=== PATIENT | male | born 1990 | race African-American/Black ===

== ENCOUNTER 2022-07-09 13:23 | Inpatient (IN) | payer OTHER ==
[~2022-07-09] VITALS: Ht 190.5 cm; Wt 134.7 kg
[2022-07-09 14:47] LABS: COVID AG,FIA SOURCE NASAL SWAB
[2022-07-09] MEDS ORDERED: VANCOMYCIN HCL 1.5 GM in DEXTROSE 5%-WATER 250 ML IV ONE (15:00)
[2022-07-09 15:43] LABS: BASOPHILS % (AUTO) 0.5 % (0.0-2.0); EOSINOPHILS % (AUTO) 0.7 % (1.0-6.0); HEMATOCRIT 32.5 % (41-53); HEMOGLOBIN 10.1 g/dL (13.5-17.5); LYMPHOCYTES % (AUTO) 22.6 % (22.0-44.0); MEAN CORPUSCULAR HEMOGLOBIN 23.6 pg (26.0-34.0); MEAN CORPUSCULAR HGB CONC 31.2 G/dL (31.0-37.0); MEAN CORPUSCULAR VOLUME 76 fL (80-100); MONOCYTES # (AUTO) 1.2 K/uL (0.1-1.0); MONOCYTES % (AUTO) 13.1 % (2.0-9.0); NEUTROPHILS # (AUTO) 5.7 K/uL (1.8-7.7); NEUTROPHILS % (AUTO) 63.1 % (40.0-70.0); PLATELET COUNT (AUTO) 350 K/uL (150-450); RED BLOOD CELL COUNT(AUTO) 4.29 MIL/uL (4.50-5.90); RED CELL DISTRIBUTION WIDTH 15.8 % (11.5-14.5)
[2022-07-09 15:58] LABS: ANION GAP 8 mmol/L (8-16); CALCIUM, TOTAL 9.1 mg/dL (8.8-10.5); CARBON DIOXIDE 27 mmol/L (22-29); CHLORIDE 96 mmol/L (98-107); CREATININE 0.94 mg/dL (0.60-1.30); GLUCOSE,RANDOM 86 mg/dL (70-110); POTASSIUM 3.6 mmol/L (3.5-5.1); SODIUM SERUM 131 mmol/L (136-145); UREA NITROGEN, BLOOD 11 mg/dL (7-18)
[2022-07-09 15:59] LABS: GLOMERULAR FILTR. RATE CALC > 60 mL/min (>60)
[2022-07-09 16:00] LABS: ALANINE AMINOTRANSFERASE 38 U/L (12-78); ALBUMIN 3.2 g/dL (3.4-5.0); ALKALINE PHOSPHATASE 71 U/L (46-116); ASPARTATE AMINOTRANSFERASE 45 U/L (15-37); BILIRUBIN,TOTAL 0.5 mg/dL (0.1-1.0); TOTAL PROTEIN, SERUM 8.1 g/dL (6.4-8.2)
[2022-07-09] MEDS ORDERED: SODIUM CHLORIDE 0.9% 100 ML ONE (16:56)
[2022-07-09] MEDS ORDERED: IOHEXOL 350 MG/ML 100 ML VIAL ONE (16:57)
[2022-07-09] MEDS ORDERED: HEPARIN SODIUM 25000 UNITS/D5W 250 ML IV PRN ×2 (19:00)
[2022-07-09] MEDS ORDERED: ONDANSETRON HCL 4 MG/2 ML VIAL IVP PRN (19:00)
[2022-07-09] MEDS ORDERED: ACETAMINOPHEN 325 MG TABLET PO PRN (19:00)
[2022-07-09] MEDS ORDERED: HEPARIN SODIUM,PORCINE 5,000 UNITS/ML VIAL IVP ONE (19:00)
[2022-07-09] MEDS ORDERED: HEPARIN SODIUM,PORCINE 5,000 UNITS/ML VIAL IVP PRN ×2 (19:00)
[2022-07-09] MEDS ORDERED: FLUO40CA PO (19:24)
[2022-07-09] MEDS ORDERED: APIX5TAB PO (19:24)
[2022-07-09] MEDS ORDERED: METO-391 PO (19:24)
[2022-07-09] MEDS ORDERED: OLOP5DRO27 OU (19:24)
[2022-07-09] MEDS ORDERED: GABA-1181 PO (19:24)
[2022-07-09] MEDS ORDERED: OXCA150T27 PO (19:24)
[2022-07-09] MEDS ORDERED: HYDR-4527 PO (19:24)
[2022-07-09] MEDS ORDERED: FURO20TA4 PO (19:24)
[2022-07-09] MEDS ORDERED: FLUO20CA36 PO (19:24)
[2022-07-09 19:27] LABS: RETICULOCYTE % (AUTO) 1.4 % (0.5-2.3)
[2022-07-09 19:41] LABS: PROTHROMBIN TIME 10.3 SEC (9.4-11.6)
[2022-07-09 20:03] LABS: BASOPHILS % (AUTO) 0.5 % (0.0-2.0); EOSINOPHILS % (AUTO) 1.9 % (1.0-6.0); HEMATOCRIT 33.2 % (41-53); HEMOGLOBIN 10.4 g/dL (13.5-17.5); LYMPHOCYTES # (AUTO) 2.4 K/uL (1.0-4.8); LYMPHOCYTES % (AUTO) 26.3 % (22.0-44.0); MEAN CORPUSCULAR HEMOGLOBIN 23.8 pg (26.0-34.0); MEAN CORPUSCULAR HGB CONC 31.4 G/dL (31.0-37.0); MEAN CORPUSCULAR VOLUME 76 fL (80-100); MONOCYTES # (AUTO) 1.3 K/uL (0.1-1.0); MONOCYTES % (AUTO) 13.7 % (2.0-9.0); NEUTROPHILS # (AUTO) 5.3 K/uL (1.8-7.7); NEUTROPHILS % (AUTO) 57.6 % (40.0-70.0); PLATELET COUNT (AUTO) 370 K/uL (150-450); RED BLOOD CELL COUNT(AUTO) 4.37 MIL/uL (4.50-5.90); RED CELL DISTRIBUTION WIDTH 15.7 % (11.5-14.5)
[2022-07-09] MEDS ORDERED: MORPHINE SULFATE 2 MG/ML SYRINGE IVP PRN (21:45)
[2022-07-09 22:27] VITALS: BP 128/67
[2022-07-09] MEDS ORDERED: SODIUM CHLORIDE 3% 15 ML NEB SOLUTION NEB ONE (23:40)
[2022-07-10] MEDS ORDERED: CeFAZolin 1 GM/DEXTROSE 50 ML IV SCH (07:00)
[2022-07-10] MEDS ORDERED: GABAPENTIN 300 MG CAPSULE PO SCH (09:00)
[2022-07-10] MEDS ORDERED: METOPROLOL SUCCINATE 50 MG ER TABLET PO SCH (09:00)
[2022-07-10] MEDS ORDERED: OXcarbazepine 300 MG TABLET PO SCH (09:00)
[2022-07-10] MEDS ORDERED: FUROSEMIDE 20 MG TABLET PO SCH (09:00)
[2022-07-10] MEDS ORDERED: HydrOXYzine HCL 25 MG TABLET PO SCH (09:00)
[2022-07-10] MEDS ORDERED: FLUoxetine HCL 20 MG CAPSULE PO SCH (09:00)
== END 2022-07-10 01:05 | disposition left against medical advice (07) | DRG 197 ==
LOC: EMS 13:40 → 6N 20:45
PROVIDERS: ADMIT Internal Medicine; ATTEND Internal Medicine
DX: I82.401 Acute embolism and thrombosis of unspecified deep veins of right lower extremity (principal); I11.0 Hypertensive heart disease with heart failure; I50.9 Heart failure, unspecified; E87.1 Hypo-osmolality and hyponatremia; L03.115 Cellulitis of right lower limb; D64.9 Anemia, unspecified; F31.9 Bipolar disorder, unspecified; I87.009 Postthrombotic syndrome without complications of unspecified extremity; F17.210 Nicotine dependence, cigarettes, uncomplicated; Z20.822 Contact with and (suspected) exposure to COVID-19; Z91.19 Patient's noncompliance with other medical treatment and regimen; Z71.6 Tobacco abuse counseling
CPT/HCPCS: 71275; 80053; 83540; 83550; 83930; 84484; 85025; 85045; 85379; 85610; 85730; 87040; 93005; 93925; 93971; 99285; G0480; J0690; J1644; J2270; J3370; J7050; J7060; Q9967

== ENCOUNTER 2023-07-02 23:47 | Emergency (ER) | payer OTHER ==
[~2023-07-02] VITALS: Ht 190.5 cm; Wt 132.0 kg
[~2023-07-02 23:47] MED LIST: APIX5TAB PO; FLUO20CA36 PO; FURO20TA4 PO; GABA-1181 PO; HYDR-4527 PO; METO-391 PO; OLOP5DRO27 OU; OXCA150T27 PO
[2023-07-03 00:19] VITALS: BP 171/87; PULSE 100; RESP 18; TEMP 98.7
[2023-07-03] MEDS ORDERED: TERB250T90 PO (02:09)
[2023-07-03] MEDS ORDERED: CLOT15CR29 TP (02:09)
[2023-07-03] MEDS ORDERED: PRED-554 PO (02:09)
[2023-07-03] MEDS ORDERED: ACET-66 PO (02:09)
== END 2023-07-03 02:30 | disposition home or self-care (01) ==
LOC: EMS 23:48
DX: B35.3 Tinea pedis (principal); B35.1 Tinea unguium; I82.401 Acute embolism and thrombosis of unspecified deep veins of right lower extremity; L23.9 Allergic contact dermatitis, unspecified cause; F64.0 Transsexualism; F41.9 Anxiety disorder, unspecified; F31.9 Bipolar disorder, unspecified; I11.0 Hypertensive heart disease with heart failure; I50.9 Heart failure, unspecified; F17.210 Nicotine dependence, cigarettes, uncomplicated; F12.90 Cannabis use, unspecified, uncomplicated; Z86.718 Personal history of other venous thrombosis and embolism
CPT/HCPCS: 99283

== ENCOUNTER 2023-07-03 23:09 | Emergency (ER) | payer OTHER ==
[~2023-07-03] VITALS: Ht 190.5 cm; Wt 136.4 kg
[~2023-07-03 23:09] MED LIST changes: +ACET-66 PO; +CLOT15CR29 TP; +PRED-554 PO; +TERB250T90 PO
[2023-07-03] MEDS ORDERED: KETOROLAC TROMETHAMINE 60 MG/2 ML VIAL IM ONE (23:30)
[2023-07-03] MEDS ORDERED: ACETAMINOPHEN 500 MG TABLET PO ONE (23:30)
[2023-07-04 01:58] VITALS: BP 147/99; PULSE 90; RESP 12; TEMP 98.3
== END 2023-07-04 02:43 | disposition home or self-care (01) ==
LOC: EMS 23:10
DX: M21.42 Flat foot [pes planus] (acquired), left foot (principal); M21.41 Flat foot [pes planus] (acquired), right foot; M79.672 Pain in left foot; M79.671 Pain in right foot; F41.9 Anxiety disorder, unspecified; F31.9 Bipolar disorder, unspecified; I11.0 Hypertensive heart disease with heart failure; I50.9 Heart failure, unspecified; F17.210 Nicotine dependence, cigarettes, uncomplicated; F12.90 Cannabis use, unspecified, uncomplicated
CPT/HCPCS: 99283; 73630 ×2; 96372; J1885

== ENCOUNTER 2023-10-07 17:32 | Inpatient (IN) | payer MEDICAID, OTHER ==
[~2023-10-07] VITALS: Ht 193 cm; Wt 116.1 kg
[2023-10-07 18:44] LABS: COVID AG,FIA SOURCE NASAL SWAB
[2023-10-07 18:45] LABS: BASOPHILS % (AUTO) 0.3 % (0.0-2.0); EOSINOPHILS % (AUTO) 0.4 % (1.0-6.0); HEMATOCRIT 39.3 % (41-53); HEMOGLOBIN 12.5 g/dL (13.5-17.5); LYMPHOCYTES # (AUTO) 1.3 K/uL (1.0-4.8); LYMPHOCYTES % (AUTO) 15.2 % (22.0-44.0); MEAN CORPUSCULAR HEMOGLOBIN 24.6 pg (26.0-34.0); MEAN CORPUSCULAR HGB CONC 31.9 G/dL (31.0-37.0); MEAN CORPUSCULAR VOLUME 77 fL (80-100); MONOCYTES # (AUTO) 0.6 K/uL (0.1-1.0); MONOCYTES % (AUTO) 7.1 % (2.0-9.0); NEUTROPHILS # (AUTO) 6.8 K/uL (1.8-7.7); PLATELET COUNT (AUTO) 355 K/uL (150-450); RED CELL DISTRIBUTION WIDTH 19.5 % (11.5-14.5); WHITE BLOOD COUNT (AUTO) 8.9 K/uL (4.5-11.0)
[2023-10-07 18:54] LABS: ANION GAP 5 mmol/L (8-16); CALCIUM, TOTAL 9.1 mg/dL (8.8-10.5); CARBON DIOXIDE 31 mmol/L (22-29); CHLORIDE 101 mmol/L (98-107); GLOMERULAR FILTR. RATE CALC > 60 mL/min (>60); GLUCOSE,RANDOM 108 mg/dL (70-110); POTASSIUM 3.6 mmol/L (3.5-5.1); SODIUM SERUM 137 mmol/L (136-145); UREA NITROGEN, BLOOD 13 mg/dL (7-18)
[2023-10-07 19:00] LABS: ALANINE AMINOTRANSFERASE 40 U/L (12-78); ALBUMIN 3.3 g/dL (3.4-5.0); ALKALINE PHOSPHATASE 76 U/L (46-116); ASPARTATE AMINOTRANSFERASE 48 U/L (15-37); BILIRUBIN,TOTAL 0.4 mg/dL (0.1-1.0)
[2023-10-07 19:13] LABS: SARS-COV2 (COVID) ANTIGEN,FIA Negative (Negative)
[2023-10-07] MEDS ORDERED: ALBU18HF12 IH (19:24)
[2023-10-07] MEDS ORDERED: BUPR1FIL3 SL (19:25)
[2023-10-07 19:27] LABS: ALCOHOL, BLOOD (SERUM) < 3 mg/dL (0-10)
[2023-10-07] MEDS ORDERED: OLANZapine 5 MG RAPDIS TABLET PO ONE (19:30)
[2023-10-07] MEDS ORDERED: DiphenhydrAMINE HCL 25 MG CAPSULE PO ONE (19:30)
[2023-10-07] MEDS ORDERED: LORazepam 1 MG TABLET PO ONE (19:30)
[2023-10-07 22:43] LABS: PH,URINE DRUG SCREEN 6.5 (5.0-8.0)
[2023-10-07 22:50] LABS: AMPHET/METH SCREEN,URINE POSITIVE (NEGATIVE); BARBITURATE SCREEN, URINE NEGATIVE (NEGATIVE); BENZODIAZEPINES SCREEN,URINE NEGATIVE (NEGATIVE); CANNABINOID SCREEN,URINE NEGATIVE (NEGATIVE); COCAINE SCREEN,URINE NEGATIVE (NEGATIVE); METHADONE SCREEN, URINE NEGATIVE (NEGATIVE); OPIATE SCREEN,URINE NEGATIVE (NEGATIVE); PHENCYCLIDINE SCREEN,URINE POSITIVE (NEGATIVE)
[2023-10-07 22:56] LABS: ALCOHOL, URINE DRUG SCREEN NEGATIVE (NEGATIVE)
[2023-10-08] MEDS ORDERED: OLANZapine 5 MG RAPDIS TABLET PO PRN (04:00)
[2023-10-08] MEDS ORDERED: ZOLPIDEM TARTRATE 10 MG TABLET PO PRN (04:00)
[2023-10-08] MEDS: LORazepam 2 MG TABLET PO PRN ×3 (05:03→20:45)
[2023-10-08] MEDS ORDERED: FLUO60TA PO (11:21)
[2023-10-08] MEDS ORDERED: ESTR2TAB6 PO (11:21)
[2023-10-08] MEDS ORDERED: SPIR100T5 PO (11:21)
[2023-10-08] MEDS ORDERED: QUET100T34 PO (11:21)
[2023-10-08] MEDS ORDERED: LOPERAMIDE HCL 2 MG CAPSULE PO PRN (12:15)
[2023-10-08] MEDS ORDERED: GuaiFENesin/D-METHORPHAN [SUGAR-FREE] 200-20MG/10 ML SYRUP UDCUP PO PRN (12:15)
[2023-10-08] MEDS ORDERED: TUBERCULIN, PURIFIED PROTEIN DERIVATIVE 5 TU/0.1 ML SYRINGE ID ONE (12:15)
[2023-10-08] MEDS ORDERED: MAGNESIUM HYDROXIDE SUSPENSION 30 ML UDCUP PO PRN (12:15)
[2023-10-08] MEDS ORDERED: MAG HYDROX/ALUMINUM HYD/SIMETH ES 30 ML SUSPENSION UDCUP PO PRN (12:15)
[2023-10-08] MEDS ORDERED: ACETAMINOPHEN 325 MG TABLET PO PRN (12:15)
[2023-10-08] MEDS ORDERED: PROMETHAZINE HCL 25 MG TABLET PO PRN (12:15)
[2023-10-08 13:30] VITALS: BP 128/86; PULSE 68; RESP 18; TEMP 97.8; O2SAT 100
[2023-10-08] MEDS: HydrOXYzine PAMOATE 50 MG CAPSULE PO PRN (14:12)
[2023-10-08] MEDS: THIAMINE 100 MG TABLET PO SCH (17:36)
[2023-10-08] MEDS ORDERED: ALBUTEROL SULFATE HFA 90 MCG/PUFF 8 GM INHALER IH PRN (19:00)
[2023-10-08] MEDS ORDERED: PNEUMOCOCCAL VACCINE POLYVALENT 0.5 ML SYRINGE [PPSV23] IM. ONE (19:30)
[2023-10-08 20:26] VITALS: RESP 20; TEMP 98.1
[2023-10-08] MEDS: OLANZapine 5 MG RAPDIS TABLET PO SCH (21:00)
[2023-10-08] MEDS: DIVALPROEX SODIUM 500 MG ER TABLET PO SCH (21:00)
[2023-10-08] MEDS: MELATONIN 5 MG TABLET PO SCH (21:03)
[2023-10-09 08:32] LABS: HEMOGLOBIN A1C 5.9 % (3.8-5.6)
[2023-10-09 08:36] VITALS: BP 138/71; PULSE 98; RESP 18; TEMP 97.9; O2SAT 97
[2023-10-09 08:48] LABS: CHOL/HDL RATIO 2.4 (4.2-7.3); FREE T4 (FREE THYROXINE) 1.22 ng/dL (0.76-1.46); THYROID STIMULATING HORMONE 0.44 uIU/mL (0.36-3.74)
[2023-10-09] MEDS: METOPROLOL SUCCINATE 50 MG ER TABLET PO SCH (09:36)
[2023-10-09] MEDS: ESTRADIOL 1 MG TABLET PO SCH ×2 (09:36→16:25)
[2023-10-09] MEDS: MULTIVITAMINS WITH MINERALS, THERAPEUTIC TABLET PO SCH (09:36)
[2023-10-09] MEDS: NALTREXONE HCL 50 MG TABLET PO SCH (09:36)
[2023-10-09] MEDS: THIAMINE 100 MG TABLET PO SCH ×2 (09:36→16:25)
[2023-10-09] MEDS: FUROSEMIDE 20 MG TABLET PO SCH (09:36)
[2023-10-09] MEDS: SPIRONOLACTONE 50 MG TABLET PO SCH ×2 (09:37→16:25)
[2023-10-09] MEDS: OMEGA-3/DHA/EPA/FISH OIL 1,000 MG CAPSULE PO SCH (09:37)
[2023-10-09] MEDS: FOLIC ACID 1 MG TABLET PO SCH (09:37)
[2023-10-09] MEDS: HydrOXYzine PAMOATE 50 MG CAPSULE PO PRN ×2 (09:57→21:21)
[2023-10-09] MEDS: LORazepam 2 MG TABLET PO PRN ×2 (16:25→21:21)
[2023-10-09] MEDS: DIVALPROEX SODIUM 500 MG ER TABLET PO SCH (21:06)
[2023-10-09] MEDS: MELATONIN 5 MG TABLET PO SCH (21:06)
[2023-10-09] MEDS: OLANZapine 5 MG RAPDIS TABLET PO SCH (21:06)
[2023-10-09 22:27] VITALS: BP 132/71; PULSE 92; RESP 18; TEMP 97.7; O2SAT 97
[2023-10-10 02:07] LABS: HEPATITIS A ANTIBODY IGM Negative (Negative); HEPATITIS B CORE IGM Negative (Negative); HEPATITIS C AB (EIA) Non Reactive (Non Reactive); HIV 1-2 SCREEN 4TH GEN W/RFLX Non Reactive (Non Reactive)
[2023-10-10] MEDS: OMEGA-3/DHA/EPA/FISH OIL 1,000 MG CAPSULE PO SCH (08:34)
[2023-10-10] MEDS: FUROSEMIDE 20 MG TABLET PO SCH (08:34)
[2023-10-10] MEDS: MULTIVITAMINS WITH MINERALS, THERAPEUTIC TABLET PO SCH (08:34)
[2023-10-10] MEDS: THIAMINE 100 MG TABLET PO SCH ×2 (08:34→17:06)
[2023-10-10] MEDS: FOLIC ACID 1 MG TABLET PO SCH (08:34)
[2023-10-10] MEDS: NALTREXONE HCL 50 MG TABLET PO SCH (08:34)
[2023-10-10] MEDS: ESTRADIOL 1 MG TABLET PO SCH ×2 (08:35→17:06)
[2023-10-10] MEDS: SPIRONOLACTONE 50 MG TABLET PO SCH ×2 (08:35→17:06)
[2023-10-10] MEDS: METOPROLOL SUCCINATE 50 MG ER TABLET PO SCH (09:08)
[2023-10-10 09:43] VITALS: BP 158/97; PULSE 77; RESP 18; TEMP 98.9; O2SAT 99
[2023-10-10] MEDS: LORazepam 2 MG TABLET PO PRN (13:23)
[2023-10-10 17:00] VITALS: BP 132/88; PULSE 84; RESP 17; O2SAT 98
[2023-10-10] MEDS: MELATONIN 5 MG TABLET PO SCH (20:12)
[2023-10-10] MEDS: DIVALPROEX SODIUM 500 MG ER TABLET PO SCH (20:16)
[2023-10-10] MEDS: OLANZapine 10 MG RAPDIS TABLET PO SCH (20:17)
[2023-10-10 20:50] VITALS: BP 148/90; PULSE 87; RESP 18; TEMP 97.6; O2SAT 98
[2023-10-11] MEDS: HydrOXYzine PAMOATE 50 MG CAPSULE PO PRN (05:18)
[2023-10-11 06:22] VITALS: BP 125/76; PULSE 84; RESP 18; TEMP 97.6; O2SAT 98
[2023-10-11] MEDS: METOPROLOL SUCCINATE 50 MG ER TABLET PO SCH (08:20)
[2023-10-11] MEDS: FUROSEMIDE 20 MG TABLET PO SCH (08:21)
[2023-10-11] MEDS: NALTREXONE HCL 50 MG TABLET PO SCH (08:21)
[2023-10-11] MEDS: MULTIVITAMINS WITH MINERALS, THERAPEUTIC TABLET PO SCH (08:21)
[2023-10-11] MEDS: FLUoxetine HCL 20 MG CAPSULE PO SCH (08:21)
[2023-10-11] MEDS: OMEGA-3/DHA/EPA/FISH OIL 1,000 MG CAPSULE PO SCH (08:21)
[2023-10-11] MEDS: THIAMINE 100 MG TABLET PO SCH ×2 (08:21→17:03)
[2023-10-11] MEDS: ESTRADIOL 1 MG TABLET PO SCH ×2 (08:21→17:03)
[2023-10-11] MEDS: FOLIC ACID 1 MG TABLET PO SCH (08:21)
[2023-10-11] MEDS: SPIRONOLACTONE 50 MG TABLET PO SCH ×2 (08:21→17:03)
[2023-10-11] MEDS: LORazepam 2 MG TABLET PO PRN ×2 (08:47→14:57)
[2023-10-11] MEDS ORDERED: FLUoxetine HCL 20 MG CAPSULE PO SCH (09:00)
[2023-10-11 09:22] VITALS: BP 138/92; PULSE 83; RESP 18; TEMP 97.7; O2SAT 98
[2023-10-11 17:00] VITALS: BP 132/88; PULSE 78; RESP 17; O2SAT 97
[2023-10-11] MEDS ORDERED: ESZOPICLONE 3 MG TABLET PO PRN (17:00)
[2023-10-11 20:00] VITALS: BP 127/64; PULSE 84; RESP 18; TEMP 97.6; O2SAT 98
[2023-10-11] MEDS: MELATONIN 5 MG TABLET PO SCH (20:25)
[2023-10-11] MEDS: OLANZapine 10 MG RAPDIS TABLET PO SCH (20:30)
[2023-10-11] MEDS ORDERED: DIVALPROEX SODIUM 500 MG ER TABLET PO SCH (21:00)
[2023-10-12] MEDS: GABAPENTIN 300 MG CAPSULE PO PRN ×3 (03:21→16:14)
[2023-10-12] MEDS: FLUoxetine HCL 20 MG CAPSULE PO SCH (08:27)
[2023-10-12] MEDS: FOLIC ACID 1 MG TABLET PO SCH (08:27)
[2023-10-12] MEDS: THIAMINE 100 MG TABLET PO SCH ×2 (08:27→16:14)
[2023-10-12] MEDS: MULTIVITAMINS WITH MINERALS, THERAPEUTIC TABLET PO SCH (08:27)
[2023-10-12] MEDS: FUROSEMIDE 20 MG TABLET PO SCH (08:27)
[2023-10-12] MEDS: OMEGA-3/DHA/EPA/FISH OIL 1,000 MG CAPSULE PO SCH (08:27)
[2023-10-12] MEDS: SPIRONOLACTONE 50 MG TABLET PO SCH ×2 (08:28→16:14)
[2023-10-12] MEDS: ESTRADIOL 1 MG TABLET PO SCH ×2 (08:28→16:14)
[2023-10-12] MEDS: METOPROLOL SUCCINATE 50 MG ER TABLET PO SCH (08:28)
[2023-10-12] MEDS: NALTREXONE HCL 50 MG TABLET PO SCH (08:31)
[2023-10-12 09:29] VITALS: BP 135/85; PULSE 88; RESP 18; TEMP 97.3; O2SAT 98
[2023-10-12] MEDS ORDERED: NICOTINE 14 MG/24 HOUR PATCH TD ONE (11:30)
[2023-10-12] MEDS: HydrOXYzine PAMOATE 50 MG CAPSULE PO PRN (14:09)
[2023-10-12] MEDS ORDERED: LORazepam 2 MG TABLET PO ONE ×2 (16:45)
[2023-10-12] MEDS ORDERED: FLUO20CA36 PO (18:46)
[2023-10-12] MEDS ORDERED: DIVA-112 PO (18:47)
[2023-10-12] MEDS ORDERED: OLAN10TA26 PO (18:49)
[2023-10-12] MEDS ORDERED: DIVA500T53 PO (18:50)
[2023-10-12] MEDS ORDERED: MELA5TAB21 PO (18:50)
[2023-10-12] MEDS ORDERED: NALT50TA33 PO (18:54)
[2023-10-15 03:06] LABS: HIV 1-2 SCREEN 4TH GEN W/RFLX Non Reactive (Non Reactive)
== END 2023-10-12 19:20 | disposition home or self-care (01) | DRG 750 ==
LOC: EMS 17:33 → B2S 10-08 10:16
PROVIDERS: ADMIT Psychiatry & Neurology Psychiatry; ATTEND Psychiatry & Neurology Psychiatry
PROC: GZHZZZZ Group Psychotherapy (ICD-10-PCS; principal; 2023-10-08)
PROC: GZ51ZZZ Individual Psychotherapy, Behavioral (ICD-10-PCS; 2023-10-08)
DX: F20.9 Schizophrenia, unspecified (principal); I11.0 Hypertensive heart disease with heart failure; I50.9 Heart failure, unspecified; D64.9 Anemia, unspecified; F16.10 Hallucinogen abuse, uncomplicated; F15.10 Other stimulant abuse, uncomplicated; F17.200 Nicotine dependence, unspecified, uncomplicated; F41.9 Anxiety disorder, unspecified; G47.00 Insomnia, unspecified; F64.0 Transsexualism; Z20.822 Contact with and (suspected) exposure to COVID-19; J44.9 Chronic obstructive pulmonary disease, unspecified; Z55.9 Problems related to education and literacy, unspecified; Z63.9 Problem related to primary support group, unspecified; Z86.718 Personal history of other venous thrombosis and embolism; Z59.9 Problem related to housing and economic circumstances, unspecified; Z65.3 Problems related to other legal circumstances; Z59.00 Homelessness unspecified
CPT/HCPCS: 80053; 80061; 80074; 80164; 80307; 83036; 84439; 84443; 85025; 86592; 87389; 93970; 99285; G0480; J3535; Q9967

== ENCOUNTER 2023-10-15 09:36 | Emergency (ER) | payer MEDICAID, OTHER ==
[~2023-10-15] VITALS: Ht 190.5 cm; Wt 118.2 kg
[~2023-10-15 09:36] MED LIST changes: -ACET-66 PO; -APIX5TAB PO; -CLOT15CR29 TP; +DIVA500T53 PO; +ESTR2TAB6 PO; -GABA-1181 PO; -HYDR-4527 PO; +MELA5TAB21 PO; +NALT50TA33 PO; +OLAN10TA26 PO; -OLOP5DRO27 OU; -OXCA150T27 PO; -PRED-554 PO; +SPIR100T5 PO; -TERB250T90 PO
[2023-10-15 09:46] VITALS: TEMP 98.7
[2023-10-15 11:45] VITALS: BP 140/60; PULSE 79; RESP 18
[2023-10-15] MEDS ORDERED: IBUP-1492 PO (11:52)
[2023-10-15] MEDS ORDERED: CEPH-558 PO (11:53)
[2023-10-15] MEDS ORDERED: SULF-261 PO (11:53)
== END 2023-10-15 12:17 | disposition home or self-care (01) ==
LOC: EMS 11:48
DX: L03.114 Cellulitis of left upper limb (principal); F41.9 Anxiety disorder, unspecified; J45.909 Unspecified asthma, uncomplicated; F31.9 Bipolar disorder, unspecified; F20.9 Schizophrenia, unspecified; I11.0 Hypertensive heart disease with heart failure; I50.9 Heart failure, unspecified; F17.210 Nicotine dependence, cigarettes, uncomplicated; F12.90 Cannabis use, unspecified, uncomplicated
CPT/HCPCS: 99283; Z7502

== ENCOUNTER 2024-03-04 12:21 | Emergency (ER) | payer OTHER ==
[~2024-03-04] VITALS: Ht 190.5 cm; Wt 117.0 kg
[~2024-03-04 12:21] MED LIST changes: +CEPH-558 PO; +IBUP-1492 PO; +SULF-261 PO
[2024-03-04 12:39] LABS: COVID AG,FIA SOURCE NASAL SWAB
[2024-03-04 13:22] LABS: BASOPHILS % (AUTO) 0.4 % (0.0-2.0); EOSINOPHILS % (AUTO) 0.5 % (1.0-6.0); HEMATOCRIT 40.2 % (41-53); HEMOGLOBIN 12.9 g/dL (13.5-17.5); LYMPHOCYTES # (AUTO) 2.8 K/uL (1.0-4.8); LYMPHOCYTES % (AUTO) 27.6 % (22.0-44.0); MEAN CORPUSCULAR HEMOGLOBIN 24.5 pg (26.0-34.0); MEAN CORPUSCULAR HGB CONC 32.2 G/dL (31.0-37.0); MEAN CORPUSCULAR VOLUME 76 fL (80-100); MONOCYTES # (AUTO) 0.8 K/uL (0.1-1.0); MONOCYTES % (AUTO) 7.4 % (2.0-9.0); NEUTROPHILS # (AUTO) 6.6 K/uL (1.8-7.7); NEUTROPHILS % (AUTO) 64.1 % (40.0-70.0); PLATELET COUNT (AUTO) 372 K/uL (150-450); RED BLOOD CELL COUNT(AUTO) 5.29 MIL/uL (4.50-5.90); RED CELL DISTRIBUTION WIDTH 17.2 % (11.5-14.5); WHITE BLOOD COUNT (AUTO) 10.3 K/uL (4.5-11.0)
[2024-03-04 13:30] LABS: SARS-COV2 (COVID) ANTIGEN,FIA Negative (Negative)
[2024-03-04 13:32] LABS: INFLUENZA TYPE A NEGATIVE FOR TYPE A (NEGATIVE); INFLUENZA TYPE B NEGATIVE FOR TYPE B (NEGATIVE)
[2024-03-04 13:37] LABS: PROTHROMBIN TIME 10.9 SEC (9.4-11.6)
[2024-03-04 13:40] LABS: ANION GAP 10 mmol/L (8-16); CALCIUM, TOTAL 9.3 mg/dL (8.8-10.5); CARBON DIOXIDE 27 mmol/L (22-29); CHLORIDE 100 mmol/L (98-107); CREATININE 0.94 mg/dL (0.60-1.30); GLOMERULAR FILTR. RATE CALC > 60 mL/min (>60); GLUCOSE,RANDOM 103 mg/dL (70-110); POTASSIUM 3.2 mmol/L (3.5-5.1); SODIUM SERUM 137 mmol/L (136-145); UREA NITROGEN, BLOOD 10 mg/dL (7-18)
[2024-03-04 13:45] LABS: B-TYPE NATRIURETIC PEPTIDE 9 pg/mL (0-100); TROPONIN I-HIGH SENSITIVITY 5 ng/L (<76)
[2024-03-04 14:05] LABS: ALANINE AMINOTRANSFERASE 26 U/L (12-78); ALBUMIN 3.8 g/dL (3.4-5.0); ALKALINE PHOSPHATASE 77 U/L (46-116); ASPARTATE AMINOTRANSFERASE 27 U/L (15-37); BILIRUBIN,TOTAL 0.5 mg/dL (0.1-1.0); CREATINE KINASE, TOTAL ONLY 394 U/L (39-308); RBC MORPHOLOGY COMMENT ABNORMAL RBC MORPH; TOTAL PROTEIN, SERUM 8.5 g/dL (6.4-8.2)
[2024-03-04 16:51] VITALS: BP 150/89; PULSE 102; RESP 22; TEMP 98.5
[2024-03-04] MEDS ORDERED: AMOX1TAB16 PO (17:05)
[2024-03-04] MEDS ORDERED: BENZ-227 PO (17:05)
[2024-03-04] MEDS: POTASSIUM CHLORIDE 20 MEQ ER TABLET PO ONE (17:21)
== END 2024-03-04 17:32 | disposition home or self-care (01) ==
LOC: EMS 12:21
DX: J01.90 Acute sinusitis, unspecified (principal); F41.9 Anxiety disorder, unspecified; J45.909 Unspecified asthma, uncomplicated; F31.9 Bipolar disorder, unspecified; F20.9 Schizophrenia, unspecified; F17.210 Nicotine dependence, cigarettes, uncomplicated; F12.90 Cannabis use, unspecified, uncomplicated; I11.0 Hypertensive heart disease with heart failure; I50.9 Heart failure, unspecified; Z20.822 Contact with and (suspected) exposure to COVID-19
CPT/HCPCS: 71045; 80053; 82550; 83880; 84484; 85025; 85610; 85730; 87804; 93005; 99285; 36415-L1; 36415-TC